=== PATIENT | male | born 1980 | race Caucasian/White ===

== ENCOUNTER 2017-11-10 13:39 | Emergency (ER) | payer BC ==
[2017-11-10] MEDS: ACETAMINOPHEN 500 MG TAB PO (15:52)
== END 2017-11-10 16:39 | disposition home or self-care (01) ==
LOC: FTE 13:39
DX: S10.93XA Contusion of unspecified part of neck, initial encounter (principal); S29.001A Unspecified injury of muscle and tendon of front wall of thorax, initial encounter; R51 Headache; R07.9 Chest pain, unspecified; Y08.89XA Assault by other specified means, initial encounter; Y92.9 Unspecified place or not applicable
CPT/HCPCS: 70450; 70490; 71046; 93005; 99285-25